=== PATIENT | female | born 1970 | race African-American/Black ===

== ENCOUNTER 2024-09-06 15:20 | Emergency (ER) | payer BC ==
[~2024-09-06] VITALS: Ht 154.9 cm; Wt 105.0 kg
[2024-09-06] MEDS ORDERED: KETOROLAC TROMETHAMINE 30 MG/ML VIAL ONE (15:48)
[2024-09-06 15:54] VITALS: PULSE 97; RESP 20
[2024-09-06] MEDS: PREDNISONE 20 MG TAB PO ONE (15:54)
[2024-09-06] MEDS: ALBUTEROL SULF 0.083% NEB SOLN 3 ML NEB NEB STA (15:54)
[2024-09-06] MEDS: KETOROLAC TROMETHAMINE 30 MG/ML VIAL IV STA (15:55)
[2024-09-06] MEDS ORDERED: IOPAMIDOL 370 MG/ML 100 ML INFUS..BTL INJ ONE (16:31)
[2024-09-06] MEDS ORDERED: SODIUM CHLORIDE 0.9% 100 ML ONE (16:31)
[2024-09-06] MEDS: AZITHROMYCIN 250 MG TAB PO ONE (17:36)
[2024-09-06] MEDS: CEFTRIAXONE 1 GM VIAL IM ONE (17:36)
[2024-09-06] MEDS ORDERED: VENTOLIN HFA18 GM INH (17:44)
[2024-09-06] MEDS ORDERED: AZITHROMYCIN250 MG PO (17:44)
[2024-09-06] MEDS ORDERED: KETOROLAC TROME10 MG PO (17:44)
[2024-09-06] MEDS ORDERED: MACROBID 100 M100 MG PO (17:46)
[2024-09-06 17:47] VITALS: PULSE 86; RESP 18; TEMP 97.8; O2SAT 95
== END 2024-09-06 17:56 | disposition home or self-care (01) ==
LOC: FSED 15:25
DX: R06.02 Shortness of breath (principal); J18.9 Pneumonia, unspecified organism; R05.9 Cough, unspecified; M54.16 Radiculopathy, lumbar region; R10.32 Left lower quadrant pain; I10 Essential (primary) hypertension; Z11.52 Encounter for screening for COVID-19
CPT/HCPCS: 0223U; 71046; 71260; 80053; 81003; 83518; 83880; 84484; 85025; 85379; 87400; 87420; 99283; J0696; J1885; J7050; J7512; Q9967